=== PATIENT | male | born 1990 | race American Indian/Alaskan Native ===

== ENCOUNTER 2021-05-20 02:30 | Emergency (ER) | payer OTHER ==
[~2021-05-20] VITALS: Ht 175.3 cm; Wt 75.0 kg
[2021-05-20] MEDS ORDERED: normal saline 1000ML IV soln IVB ONE (02:35)
[2021-05-20] MEDS ORDERED: ondansetron/PF 4mg/2ml inj IV ONE (02:35)
[2021-05-20 03:03] LABS: BASOPHILS # (AUTO) 0.1 X10'3 (0-0.2); BASOPHILS % (AUTO) 0.9 % (0-1); EOSINOPHILS # (AUTO) 0.2 X10'3 (0-0.9); EOSINOPHILS % (AUTO) 2.4 % (0-6); HEMATOCRIT 48.1 % (42.0-52.0); HEMOGLOBIN 16.6 g/dl (14.0-17.9); LYMPHOCYTES # (AUTO) 3.4 X10'3 (1.1-4.8); LYMPHOCYTES % (AUTO) 35.8 % (21-51); MEAN CORPUSCULAR HGB CONC 34.5 g/dL (33.0-36.5); MEAN CORPUSCULAR VOLUME 83.9 FL (78-98); MEAN PLATELET VOLUME 7.4 FL (7.4-10.4); MONOCYTES % (AUTO) 10.7 % (2-12); NEUTROPHILS # (AUTO) 4.8 X10'3 (1.8-7.7); NEUTROPHILS % (AUTO) 50.2 % (42-75); PLATELET COUNT 276 X10'3 (140-440); RED BLOOD COUNT 5.73 X10'6 (4.70-6.10); RED CELL DISTRIBUTION WIDTH 13.8 % (11.5-14.5); WHITE BLOOD COUNT 9.5 X10'3 (4.5-11.0)
[2021-05-20 03:14] LABS: ALANINE AMINOTRANSFERASE 40 U/L (12-78); ALBUMIN 4.2 G/DL (3.4-5.0); ALBUMIN/GLOBULIN RATIO 1.1 (1.1-1.5); ALKALINE PHOSPHATASE 89 IU/L (46-116); ANION GAP 9 (8-16); ASPARTATE AMINO TRANSFERASE 16 U/L (10-37); BILIRUBIN,TOTAL 0.7 MG/DL (0.1-1.0); BLOOD UREA NITROGEN 19 MG/DL (7-18); BUN/CREATININE RATIO 16.8 (5.4-32.0); CALCIUM 9.2 MG/DL (8.5-10.1); CHLORIDE 105 MMOL/L (99-107); CREATININE 1.13 MG/DL (0.60-1.10); GLUCOSE 123 MG/DL (70-104); LIPASE 52 U/L (73-393); POTASSIUM 3.8 MMOL/L (3.5-5.1); SODIUM 144 MMOL/L (135-145); TOTAL CARBON DIOXIDE 29.7 MMOL/L (24-32); TOTAL PROTEIN 7.9 G/DL (6.4-8.2); eGFR 76 ML/MIN
[2021-05-20 03:41] LABS: CLARITY,URINE CLEAR (Clear); COLOR,URINE YELLOW (Yellow); PH,URINE 6.5 (4.8-8.0); UA COLLECTION TYPE URINAL
[2021-05-20 03:47] LABS: GLUCOSE, URINE 500 mg/dl (Neg); KETONES,URINE NEGATIVE (Neg); PROTEIN,URINE 30 mg/dl (Neg)
[2021-05-20 03:48] LABS: NITRITES, URINE NEGATIVE (Neg); UROBILINOGEN,URINE 0.2 E.U/dL (0.2-1.0)
[2021-05-20 03:49] LABS: LEUKOCYTE ESTERASE ,URINE TRACE (Neg)
[2021-05-20 04:19] LABS: OCCULT BLOOD,URINE LARGE (Neg)
[2021-05-20 04:21] LABS: RBC,URINE TNTC /HPF (0-2); WBC,URINE 30-50 /HPF (0-4)
[2021-05-20 04:22] LABS: BACTERIA,URINE FEW /HPF (Neg); MUCUS STRANDS MANY /LPF (Neg); SQUAMOUS EPITHELIAL CELL,UR NONE SEEN /LPF (FEW)
[2021-05-20] MEDS ORDERED: CefTRIAXone/D5W-Rocephin 1gm 50 ML IV ONE (04:50)
[2021-05-20] MEDS ORDERED: ketorolac trometh. 30mg/ml inj. IV ONE (04:50)
[2021-05-20] MEDS ORDERED: CIPR-260 PO (04:52)
[2021-05-20 05:17] VITALS: BP 131/89
== END 2021-05-20 05:30 | disposition home or self-care (01) ==
LOC: ER 02:30
DX: N20.0 Calculus of kidney (principal); N39.0 Urinary tract infection, site not specified; Z79.2 Long term (current) use of antibiotics
CPT/HCPCS: 36415; 74176; 80053; 81001; 83690; 85025; 87088; 96361; 96365; 96375; 99284; J0696; J1885; J2405; J7030